=== PATIENT | female | born 1985 | race African-American/Black ===

== ENCOUNTER 2017-08-02 07:23 | Emergency (ER) | payer OTHER ==
[2017-08-02 07:33] VITALS: BP 139/72; BMI 28.1
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
[2017-08-02 08:59] LABS: SERUM PREGNANCY TEST, QUAL NEGATIVE <10 mIU/mL
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
== END 2017-08-02 10:08 | disposition home or self-care (01) ==
LOC: ER 07:45
DX: S10.93XA Contusion of unspecified part of neck, initial encounter (principal); V49.9XXA Car occupant (driver) (passenger) injured in unspecified traffic accident, initial encounter
CPT/HCPCS: 36415; 70450; 72125; 84703; 99282; 99283